=== PATIENT | female | born 1985 | race Caucasian/White ===

== ENCOUNTER 2020-07-01 21:22 | Inpatient (IN) ==
[2020-07-01] MEDS ORDERED: BUTORPHANOL 2 MG/ML VIAL IV PRN (21:35)
[2020-07-01] MEDS ORDERED: MEPERIDINE 50 MG/1 ML VIAL IV PRN (21:35)
[2020-07-01] MEDS ORDERED: ONDANSETRON 4 MG/2 ML VIAL IV PRN (21:35)
[2020-07-01 22:34] LABS: Basophils % 0.3 % (0.0-0.8); Eosinophils # 0.1 10*3/uL (0.0-0.87); Hemoglobin 12.1 GM/DL (12.0-16.0); Immature Granulocytes % 0.4 %; Immature Granulocytes Absolute 0.05 #; Lymphocytes % 17.9 % (21.3-54.2); Mean Corpuscular HGB Conc 33.6 GM/DL (32-36); Mean Platelet Volume 12.6 FL (9.6-12.0); Monocytes % 6.6 % (1.7-12.7); Neutrophils % 73.8 % (38.7-73.9); Platelet Count 301 T/CUMM (130-400); Red Cell Distribution Width 12.9 % (9.3-17.3); White Blood Count 11.2 T/CUMM (4-12)
[2020-07-01 22:43] LABS: Bacteria,Urine Occasional /HPF (Few); Bilirubin,Urine Negative (Negative); Blood, Urine Negative (Negative); Glucose,Urine (UA) Negative (Negative); Ketones,Urine Negative (Negative); Mucus,Urine Occasional /LPF (Occasional); Nitrite,Urine Negative (Negative); Protein,Urine 100 MG/DL; RBC,Urine 4 /HPF (0-4); Squamous Epithelial Cell,Urine Occasional /HPF (0-10); Urine Appearance CLEAR (Clear); Urine Color Yellow (Yellow); Urine Specific Gravity 1.012 (1.001-1.035); Urine Urobilinogen < 2.0 EU/DL (0.2-1.0)
[2020-07-01 22:44] LABS: INR 0.8; PT Patient Result 9.4 SECS (10.5-12.0); Partial Thromboplastin Time 26.3 SECS (23.9-33.8)
[2020-07-01 22:47] LABS: Protein/Creatinine Ratio,Urine 1.1 RATIO
[2020-07-01 23:06] LABS: Alanine Aminotransferase 25 U/L (13-56); Albumin 2.3 G/DL (3.4-5.0); Alkaline Phosphatase 142 U/L (45-117); Aspartate Amino Transferase 15 U/L (0-37); Bilirubin,Total < 0.39 MG/DL (0.2-1.0); Blood Urea Nitrogen 10 MG/DL (7-18); Calcium 8.8 MG/DL (8.5-10.1); Carbon Dioxide 23 MMOL/L (21-32); Estimated Glom Filtration Rate 132 ML/MIN; Glucose 133 MG/DL (74-106); Osmolality,Calculated 275.7 MOS/KG (273-304); Potassium 3.5 MMOL/L (3.5-5.1); Sodium 138 MMOL/L (136-145); Total Protein 6.6 G/DL (6.4-8.2)
[2020-07-01] MEDS ORDERED: hydrALAZINE 20 MG/1 ML VIAL IV ONE (23:17)
[2020-07-01] MEDS: LACTATED RINGERS 1,000 ML IV SCH (23:50)
[2020-07-02] MEDS ORDERED: hydrALAZINE 20 MG/1 ML VIAL IV ONE ×2 (00:33→13:07)
[2020-07-02] MEDS ORDERED: LABETALOL 100 MG TABLET ONE (04:43)
[2020-07-02] MEDS ORDERED: LABETALOL 200 MG TABLET ONE ×2 (04:43→10:35)
[2020-07-02] MEDS ORDERED: LABETALOL 100 MG TABLET PO SCH ×2 (06:00→13:00)
[2020-07-02] MEDS: LACTATED RINGERS 1,000 ML IV SCH (07:41)
[2020-07-02] MEDS ORDERED: CITRIC ACID/SODIUM CITRATE 30 ML UDCUP PO ONE (08:20)
[2020-07-02] MEDS ORDERED: FAMOTIDINE 20 MG/2 ML VIAL IV ONE (08:20)
[2020-07-02] MEDS ORDERED: LACTATED RINGERS 1,000 ML IV SCH (08:30)
[2020-07-02] MEDS ORDERED: TRANEXAMIC ACID 1,000 MG/10 ML VIAL ONE (08:30)
[2020-07-02] MEDS ORDERED: OXYTOCIN/LR 20 UNIT/1,000 ML BAG IV ONE ×2 (08:30→10:12)
[2020-07-02] MEDS ORDERED: miSOPROStoL 200 MCG TABLET ONE (08:30)
[2020-07-02] MEDS ORDERED: CARBOPROST TROMETHAMINE 250 MCG/ML AMP IM ONE (08:31)
[2020-07-02] MEDS ORDERED: METHYLERGONOVINE 0.2 MG/1 ML AMP ONE (08:31)
[2020-07-02] MEDS ORDERED: ONDANSETRON 4 MG/2 ML VIAL ONE ×2 (08:34)
[2020-07-02] MEDS ORDERED: BUPIVACAINE SPINAL 0.75% 2 ML AMP SPINAL ONE (08:34)
[2020-07-02] MEDS ORDERED: DEXAMETHASONE 4 MG/1 ML VIAL ONE ×2 (08:35)
[2020-07-02] MEDS ORDERED: PHENYLEPHRINE 10 MG/1 ML VIAL IV ONE (08:40)
[2020-07-02] MEDS ORDERED: SODIUM CHLORIDE 0.9% 100 ML IV ONE (08:41)
[2020-07-02] MEDS ORDERED: ceFAZolin 3,000 MG in SYRINGE 1 EACH IV ONE (09:00)
[2020-07-02] MEDS ORDERED: FELODIPINE 5 MG TABLET PO SCH (09:00)
[2020-07-02] MEDS ORDERED: hydrALAZINE 20 MG/1 ML VIAL ONE (09:16)
[2020-07-02 09:28] LABS: Cord Venous Blood HCO3 25.6 MMOL/L; Cord Venous Blood PCO2 43.4 MMHG; Cord Venous Blood PO2 27.4 MMHG
[2020-07-02 09:35] LABS: Bilirubin,Urine Negative (Negative); Blood, Urine Negative (Negative); Glucose,Urine (UA) Negative (Negative); Ketones,Urine Negative (Negative); Nitrite,Urine Negative (Negative); Protein,Urine Negative; RBC,Urine <1 /HPF (0-4); Squamous Epithelial Cell,Urine Occasional /HPF (0-10); Urine Appearance CLEAR (Clear); Urine Color Straw (Yellow); Urine Specific Gravity 1.006 (1.001-1.035); Urine Urobilinogen < 2.0 EU/DL (0.2-1.0)
[2020-07-02] MEDS ORDERED: BISACODYL 10 MG SUPP RECTAL PRN (10:12)
[2020-07-02] MEDS ORDERED: LANOLIN 50% CREAM 0.3 OZ TUBE TOP PRN (10:12)
[2020-07-02] MEDS ORDERED: ACETAMINOPHEN 325 MG TABLET PO PRN (10:12)
[2020-07-02] MEDS ORDERED: oxyCODONE/ACETAMINOPHEN 5-325 MG TABLET PO PRN (10:12)
[2020-07-02] MEDS ORDERED: BENZOCAINE 20%/MENTHOL 0.5% SPRAY 56 GM CAN TOP PRN (10:12)
[2020-07-02] MEDS ORDERED: DIPH/TET/ACEL PERT BOOSTER VACCINE 0.5 ML VIAL IM ONE (10:12)
[2020-07-02] MEDS ORDERED: ONDANSETRON 4 MG/2 ML VIAL IV PRN (10:12)
[2020-07-02] MEDS ORDERED: MEASLES/MUMPS/RUBELLA VACCINE 0.5 ML VIAL SUBCUT ONE (10:12)
[2020-07-02] MEDS ORDERED: RHO(D) IMMUNE GLOBULIN 300 MCG SYRINGE IM ONE (10:12)
[2020-07-02] MEDS ORDERED: WITCH HAZEL PADS 100/JAR TOP PRN (10:12)
[2020-07-02] MEDS ORDERED: HYDROCORTISONE 2.5% RECTAL CREAM 30 GM TUBE TOP PRN (10:12)
[2020-07-02] MEDS ORDERED: LABETALOL 200 MG TABLET PO SCH (10:32)
[2020-07-02] MEDS: ACETAMINOPHEN 500 MG TABLET PO PRN ×3 (10:38→21:22)
[2020-07-02] MEDS: LEVOTHYROXINE 25 MCG TABLET PO SCH (10:40)
[2020-07-02] MEDS: KETOROLAC 30 MG/1 ML VIAL IV SCH ×4 (10:40→22:45)
[2020-07-02] MEDS: FELODIPINE 5 MG TABLET PO SCH (12:55)
[2020-07-02] MEDS: ceFAZolin 2,000 MG/50 ML DUPLEX IV SCH (16:48)
[2020-07-02] MEDS: DOCUSATE SODIUM 100 MG CAPSULE PO SCH (21:22)
[2020-07-02] MEDS: LABETALOL 100 MG TABLET PO SCH (21:23)
[2020-07-03] MEDS: oxyCODONE/ACETAMINOPHEN 5-325 MG TABLET PO PRN ×3 (01:10→19:50)
[2020-07-03] MEDS: ceFAZolin 2,000 MG/50 ML DUPLEX IV SCH (01:32)
[2020-07-03] MEDS: LABETALOL 100 MG TABLET PO SCH ×3 (05:03→21:12)
[2020-07-03] MEDS: IBUPROFEN 800 MG TABLET PO PRN (05:04)
[2020-07-03] MEDS: ACETAMINOPHEN 500 MG TABLET PO PRN (05:04)
[2020-07-03] MEDS: KETOROLAC 30 MG/1 ML VIAL IV SCH (05:04)
[2020-07-03 05:46] LABS: Basophils % 0.2 % (0.0-0.8); Eosinophils % 0.2 % (0.00-10.9); Hematocrit 31.7 VOL% (35.7-47.0); Hemoglobin 10.6 GM/DL (12.0-16.0); Immature Granulocytes % 0.5 %; Immature Granulocytes Absolute 0.08 #; Lymphocytes # 2.4 10*3/uL (1.4-4.0); Mean Corpuscular HGB Conc 33.4 GM/DL (32-36); Mean Corpuscular Volume 90.6 FL (87-102); Monocytes % 8.4 % (1.7-12.7); Neutrophils % 74.7 % (38.7-73.9); Platelet Count 276 T/CUMM (130-400); Red Cell Distribution Width 13.2 % (9.3-17.3); White Blood Count 15.1 T/CUMM (4-12)
[2020-07-03] MEDS ORDERED: MAGNESIUM HYDROXIDE SUSP 30 ML UDCUP PO PRN (08:28)
[2020-07-03] MEDS: LEVOTHYROXINE 25 MCG TABLET PO SCH (08:44)
[2020-07-03] MEDS: FELODIPINE 5 MG TABLET PO SCH (08:46)
[2020-07-03] MEDS: DOCUSATE SODIUM 100 MG CAPSULE PO SCH ×2 (08:47→21:12)
[2020-07-04] MEDS: IBUPROFEN 800 MG TABLET PO PRN (01:26)
[2020-07-04] MEDS: LABETALOL 100 MG TABLET PO SCH (05:28)
[2020-07-04 08:20] VITALS: BP 133/72
[2020-07-04] MEDS: DOCUSATE SODIUM 100 MG CAPSULE PO SCH (09:04)
[2020-07-04] MEDS: FELODIPINE 5 MG TABLET PO SCH (09:05)
[2020-07-04] MEDS: LEVOTHYROXINE 25 MCG TABLET PO SCH (09:05)
== END 2020-07-04 13:10 | disposition home or self-care (01) | DRG 788 ==
LOC: N.LDOUT 21:22 → N.LD 21:23 → N.OB 07-02 14:20
PROVIDERS: ADMIT Specialist; ATTEND Specialist
PROC: LDCSECT (ICD-10-PCS; 2020-07-02 08:00)